=== PATIENT | male | born 1975 | race Caucasian/White ===

== ENCOUNTER 2017-05-02 08:33 | Outpatient (CLI) | payer BC ==
--- NOTE | 2017-05-02 10:25 | DIAGNOSTIC IMAGING REPORT ---
PROCEDURE: US ABDOMEN ULTRASOUND-COMPLETE INDICATION: ABD PAIN TECHNIQUE: Simon scale and color Doppler sonographic images of the abdomen were obtained without comparison. COMPARISON: None. FINDINGS: The liver is normal in size, contour, and echotexture. No mass or intrahepatic biliary dilatation. The gallbladder is normal without stones or sludge. The wall is normal thickness measuring 2 mm. No pericholecystic fluid or Yoder sign. The extrahepatic common bile duct is normal measuring 4.8 mm. The visualized pancreas is normal without ductal dilatation or peripancreatic fluid collection. The abdominal aorta is normal in its course and caliber. The retrohepatic inferior vena cava is patent. There is appropriate hepatopetal flow in the portal vein. The right kidney measures 12.0 cm in length. The left kidney measures 11.5 cm in length. Both kidneys demonstrate normal morphology and cortical thickness without hydronephrosis, cyst, solid mass, or shadowing calculus. Color Doppler imaging demonstrates normal blood flow in each kidney. The spleen, difficult to visualize, but grossly normal in size measuring approximately 9.3 cm in length. There is no perihepatic or perisplenic ascites. IMPRESSION: 1. Normal abdominal ultrasound.
--- NOTE | 2017-05-02 13:28 | DIAGNOSTIC IMAGING REPORT ---
PROCEDURE: XR UPPER GI WITH AIR INDICATION: Abdominal and epigastric pain. Occasional dysphagia. TECHNIQUE: Double contrast study. Fluoroscopy time, 3.3 minutes; 1593.40 mGy. 72 fluoroscopic images (including cinefluoroscopy). COMPARISON: None. FINDINGS: Pharyngoesophagus is normal. Small sliding hiatal hernia. Moderate gastroesophageal reflux. Esophagus is otherwise normal. Stomach and duodenum are normal. IMPRESSION: 1. Normal pharyngoesophagus. 2. Small sliding hiatal hernia. 3. Moderate gastroesophageal reflux. 4. Otherwise negative upper GI.
== END 2017-05-02 23:00 ==
LOC: US SRH 08:33
DX: R10.9 Unspecified abdominal pain (principal); K44.9 Diaphragmatic hernia without obstruction or gangrene; K21.9 Gastro-esophageal reflux disease without esophagitis